=== PATIENT | female | born 1960 | race Caucasian/White ===

== ENCOUNTER → 2018-01-21 | Outpatient (CLI) | payer MEDICARE, OTHER ==
--- NOTE | 2018-01-21 16:32 | PCVCIMAG ---
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 2D Dimensions LVEF(%): 53.56 (>50%) IVSd: 9.16 (7-11mm) LVDd: 47.74 mm PWd: 10.68 (7-11mm)Ascending Ao: 27.14 (22-36mm) LVDs: 34.55 (25-40mm) Left Atrium: 43.53 (27-40mm) Aortic Root: 25.77 mm LV Single Plane 4CH: 45.26 % LV Single Plane 2CH: 45.80 %Vasques's LVEF: 45.53 % Biplane EF: 45.1 % Volumes Left Atrial Volume (Systole) Single Plane 4CH: 57.37 mLSingle Plane 2CH: 56.50 mL LA ESV Index: 31.00 mL/m2 Aortic Valve AoV Peak Kevin.: 1.47 m/s AO Peak Gr.: 8.71 mmHgLVOT Max P.54 mmHg LVOT Max V: 0.94 m/s Pulmonary Valve PV Peak Kevin.: 1.00 m/sPV Peak Gr.: 4.04 mmHg Tricuspid Valve TR Peak Kevin.: 2.61 m/s TR Peak Gr.: 27.24 mmHg Left Ventricle The left ventricle is normal size. There is normal LV segmental wall motion. There is normal left ventricular wall thickness. Left ventricular systolic function is normal. The left ventricular ejection fraction is within the normal range. LVEF is 50-55%. This study is not technically sufficient to allow evaluation of the LV diastolic function due to atrial fibrillation. Right Ventricle The right ventricle is normal size. The right ventricular systolic function is normal. Atria Left atrium is mildly dilated. Consistent with ASD repair, no residual atrial communication by color doppler. Right atrium is mildly dilated. Aortic Valve The aortic valve is normal in structure. Trace aortic regurgitation. There is no aortic valvular stenosis. Mitral Valve The mitral valve is normal in structure. Trace mitral regurgitation. No evidence of mitral valve stenosis. Tricuspid Valve The tricuspid valve is normal in structure. Mild to moderate tricuspid regurgitation with PAP of 35 mmHg. Pulmonic Valve The pulmonary valve is normal in structure. Mild pulmonic regurgitation. Great Vessels The aortic root is normal in size. IVC is normal in size and collapses with >50% inspiration Pericardium There is no pericardial effusion. <Conclusion> Left ventricular systolic function is normal. There is normal LV segmental wall motion. LVEF 50-55%. Both atria are dilated. Changes consistent with ASD repair, no residual atrial communication by color doppler. The aortic valve is normal in structure. Trace aortic regurgitation, no stenosis. The mitral valve is normal in structure. Trace mitral regurgitation. Mild to moderate tricuspid regurgitation with pulmonary artery pressure of 35 mmHg. There is no pericardial effusion.
== END | disposition home or self-care (01) ==
LOC: PCVCIMAG 15:58
PROVIDERS: ATTEND Internal Medicine
DX: I07.1 Rheumatic tricuspid insufficiency (principal); I24.9 Acute ischemic heart disease, unspecified; I48.91 Unspecified atrial fibrillation
CPT/HCPCS: 93306